=== PATIENT | female | born 1960 | race African-American/Black ===

== ENCOUNTER 2016-07-02 17:46 | Emergency (ER) | payer BC ==
[~2016-07-02] VITALS: Ht 167.6 cm; Wt 78.0 kg
[2016-07-02] MEDS ORDERED: KETOROLAC 30MG/ML VIAL IM ONE (20:15)
[2016-07-02 21:21] LABS: BASOPHILS % 1.1 % (0.0-2.0); EOSINOPHILS % 2.4 % (0.0-5.0); HEMATOCRIT. 37.8 % (36.0-48.0); HEMOGLOBIN. 12.5 g/dL (12.0-16.0); LYMPHOCYTES % 47.4 % (20.0-50.0); MEAN CORPUSCULAR HEMOGLOBIN 28.4 pg (28.0-32.0); MEAN CORPUSCULAR HGB CONC 33.1 g/dL (31.0-37.0); MEAN CORPUSCULAR VOLUME 85.8 fL (81.0-99.0); MEAN PLATELET VOLUME 8.2 fl (7.4-10.4); MONOCYTES % 7.4 % (2.0-8.0); NEUTROPHILS % 41.7 % (40.0-76.0); PLATELET 222 x1000/uL (130-400); RED BLOOD CELL COUNT 4.41 mill/uL (4.2-5.4); RED CELL DISTRIBUTION WIDTH 13.6 % (11.6-14.6); WHITE BLOOD COUNT 6.9 x1000/uL (4.5-11.0)
[2016-07-02 21:34] LABS: ALANINE AMINOTRANSFERASE 53 IU/L (13-61); ALBUMIN 3.9 g/dL (3.4-5.0); CALCIUM 9.5 mg/dL (8.5-10.1); CARBON DIOXIDE 21 mEq/L (21-32); CHLORIDE 110 mEq/L (98-107); INDEX HEMOLYSI 1 (1-3); INDEX ICTERIC 1 (1-4); INDEX LIPEMIC 1 (1-3); UREA NITROGEN BLOOD 10 mg/dL (7-21); eGFR > 60 mL/min (>60)
[2016-07-02 21:36] LABS: ANION GAP 13
[2016-07-02 22:10] VITALS: BP 143/99
== END 2016-07-02 22:10 | disposition home or self-care (01) ==
LOC: ER 18:25
DX: M70.21 Olecranon bursitis, right elbow (principal); I10 Essential (primary) hypertension; Z98.890 Other specified postprocedural states; Y93.89 Activity, other specified
CPT/HCPCS: 36415; 73080; 80053; 85025; 96372; 99285; J1885